=== PATIENT | female | born 1940 | race Caucasian/White ===

== ENCOUNTER 2017-04-18 15:35 | Emergency (ER) | payer OTHER, BC ==
[2017-04-18 15:39] VITALS: BP 125/66; PULSE 76; TEMP 98.1; BMI 19.2
--- NOTE | 2017-04-18 16:07 | PDOC ---
History of Present Illness - General History Source: Family, Spouse Exam Limitations: Dementia - History of Present Illness Initial Comments: 04/18/17 16:34 76 y.o female with significant past medical history of hypothyroidism and dementia, who presents to the emergency room complaining of right wrist pain and swelling s/p unwitnessed fall in the bathroom at home 2 nights ago. The patients reports that she must have missed the toilet and fell hitting her right wrist onto the bathtub or floor. He states that she was on the floor for approximately 2 minutes before he went to check on her and found her lying on the floor. Denies head trauma or LOC. The patient is acting normally as per patients daughter and . Denies headache, lightheadedness. Denies chest pain, SOB. Denies fever, chills. Denies any other injuries. Allergies: NKA <Manda Lopez - Last Filed: 04/18/17 16:39> <Calos Williamson - Last Filed: 04/18/17 17:37> - General Chief Complaint: Injury Stated Complaint: LEFT WRIST INJURY Time Seen by Provider: 04/18/17 15:55 Past History <Manda Lopez - Last Filed: 04/18/17 16:39> - Suicide/Smoking/Psychosocial Hx Smoking History: Former smoker Have you smoked in the past 12 months: No Information on smoking cessation initiated: No Hx Alcohol Use: No Drug/Substance Use Hx: No <Calos Williamson - Last Filed: 04/18/17 17:37> - Past Medical History Allergies/Adverse Reactions: Allergies Allergy/AdvReac Type Severity Reaction Status Date / Time No Known Allergies Allergy Verified 04/18/17 15:36 Home Medications: Ambulatory Orders Donepezil HCl 10 mg PO DAILY 04/18/17 Levothyroxine Sodium [Synthroid] 137 mcg PO DAILY 04/18/17 Memantine HCl [Namenda -] 10 mg PO DAILY 04/18/17 Review of Systems - Review of Systems Able to Perform ROS?: Yes Comments:: 04/18/17 16:34 A complete review of 10 out of 10 review of systems is taken and is negative apart from what is previously mentioned below and in the HPI. <Manda Lopez - Last Filed: 04/18/17 16:39> *Physical Exam - Vital Signs Last Vital Signs Temp Pulse Resp BP Pulse Ox 98.1 F 76 18 125/66 96 04/18/17 15:35 04/18/17 15:35 04/18/17 15:35 04/18/17 15:35 04/18/17 15:35 - Physical Exam Comments: 04/18/17 16:34 Vitals: Triage Vital signs reviewed General Appearance: no acute distress, well nourished well developed Head: Atraumatic Eyes: Pupils equal reactive round, extraocular movement intact Cardiac: Regular rate and rhythym, no murmurs, no rubs, no gallops Lungs: Clear to auscultation bilateral, good air movement bilaterally Right upper extremity: There is swelling and tenderness over the distal radius. Neurovascularly intact distally. Skin: Warm and dry, no rashes or lesions, no rash, no petechiae Neuro: Cranial Nerves 2-12 intact. Gait normal <Manda Lopez - Last Filed: 04/18/17 16:39> - Vital Signs Last Vital Signs Temp Pulse Resp BP Pulse Ox 98.1 F 76 18 125/66 96 04/18/17 15:35 04/18/17 15:35 04/18/17 15:35 04/18/17 15:35 04/18/17 15:35 <Calos Williamson - Last Filed: 04/18/17 17:37> Medical Decision Making - Medical Decision Making 04/18/17 17:36 History and examination consistent with mechanical fall. Discussed with family obtaining a CT of had blood work chest x-ray and urinalysis but family states that since fall occurred 2 nights ago and patient has been at her baseline mental status well-appearing normal only complaining of wrist pain at this time to feel she needs more of a workup then a wrist film Reevaluation wrist x-ray positive for Colles fracture. No significant displacement no indication for auction and ED. Splint placed. Patient provided with orthopedic follow-up Findings, the need for follow-up and strict return instructions discussed with patient and family. <Calos Williamson - Last Filed: 04/18/17 17:37> *DC/Admit/Observation/Transfer - Discharge Dispostion Admit: No - Attestations Scribe Attestion: 04/18/17 16:36 Documentation prepared by SANDRA Thomason, acting as medical record administrator for Calos Williamson MD. <Manda Lopez - Last Filed: 04/18/17 16:39> - Discharge Dispostion Admit: No <Calos Williamson - Last Filed: 04/18/17 17:37> Diagnosis at time of Disposition: Colles' fracture Qualifiers: Encounter type: initial encounter Fracture type: closed Laterality: right Qualified Code(s): S52.531A - Colles' fracture of right radius, initial encounter for closed fracture - Discharge Dispostion Disposition: HOME Condition at time of disposition: Stable - Referrals Referrals: Ron Aguiar MD [Staff Physician] - - Patient Instructions Printed Discharge Instructions: DI for Wrist Fracture, Colles' Fracture Additional Instructions: Ice 20 minutes on and 20 minutes off. Keep elevated as much as possible. Take 2 tabs of Aleve twice a day for 3 days. Avoid activities which exacerbate the pain. Follow up with orthopedist provided this week, Return to Emergency department for any severe or worsening symptoms or any concerns,
== END 2017-04-18 17:00 | disposition home or self-care (01) ==
LOC: FER 15:35
DX: S52.531A Colles' fracture of right radius, initial encounter for closed fracture (principal); W18.39XA Other fall on same level, initial encounter; Y93.89 Activity, other specified; Y92.002 Bathroom of unspecified non-institutional (private) residence as the place of occurrence of the external cause; E03.9 Hypothyroidism, unspecified; F03.90 Unspecified dementia, unspecified severity, without behavioral disturbance, psychotic disturbance, mood disturbance, and anxiety; Z87.891 Personal history of nicotine dependence
CPT/HCPCS: 73110-TC-RT; 73130-TC-RT; 99283-25

== ENCOUNTER 2017-06-27 09:17 | Emergency (ER) | payer OTHER, BC ==
[2017-06-27 09:28] VITALS: BP 125/70; PULSE 82; TEMP 98.1; BMI 20.5
[2017-06-27] MEDS ORDERED: IBUPROFEN 600 MG TABLET (FP) PO ONE ×2 (09:35→09:37)
--- NOTE | 2017-06-27 09:37 | PDOC ---
History of Present Illness - General Chief Complaint: Pain, Acute Stated Complaint: left arm pain Time Seen by Provider: 06/27/17 09:24 Past History - Past Medical History Allergies/Adverse Reactions: Allergies Allergy/AdvReac Type Severity Reaction Status Date / Time No Known Allergies Allergy Verified 04/18/17 15:36 Home Medications: Ambulatory Orders Levothyroxine Sodium [Synthroid] 137 mcg PO DAILY 04/18/17 COPD: No Dementia: Yes (ALZHEIMER'S) Thyroid Disease: Yes - Suicide/Smoking/Psychosocial Hx Smoking History: Never smoked Have you smoked in the past 12 months: No Information on smoking cessation initiated: No Hx Alcohol Use: No Drug/Substance Use Hx: No Substance Use Type: None *Physical Exam - Vital Signs Last Vital Signs Temp Pulse Resp BP Pulse Ox 98.1 F 82 18 125/70 96 06/27/17 09:18 06/27/17 09:18 06/27/17 09:18 06/27/17 09:18 06/27/17 09:18 *DC/Admit/Observation/Transfer Diagnosis at time of Disposition: Colles' fracture Qualifiers: Encounter type: initial encounter Fracture type: closed Laterality: left Qualified Code(s): S52.532A - Colles' fracture of left radius, initial encounter for closed fracture - Discharge Dispostion Disposition: HOME Condition at time of disposition: Stable Admit: No - Referrals Referrals: Mikel Brown MD [Staff Physician] - - Patient Instructions Printed Discharge Instructions: Colles' Fracture - Post Discharge Activity
== END 2017-06-27 11:16 | disposition home or self-care (01) ==
LOC: FER 09:17
DX: S52.532A Colles' fracture of left radius, initial encounter for closed fracture (principal); X58.XXXA Exposure to other specified factors, initial encounter; Y93.89 Activity, other specified; Y92.9 Unspecified place or not applicable; G30.9 Alzheimer's disease, unspecified; F02.80 Dementia in other diseases classified elsewhere, unspecified severity, without behavioral disturbance, psychotic disturbance, mood disturbance, and anxiety; E07.9 Disorder of thyroid, unspecified
CPT/HCPCS: 73110-TC-LR-FY; 99281-25

== ENCOUNTER 2018-08-30 12:44 | Emergency (ER) | payer OTHER, BC ==
--- NOTE | 2018-08-30 12:47 | PDOC ---
History of Present Illness - General Chief Complaint: Injury Stated Complaint: FALL Time Seen by Provider: 08/30/18 12:47 History Source: Patient - History of Present Illness Initial Comments: 08/30/18 13:11 HPI obtained from wearing apparel presser, and son-in-law @ bedside. The patient is an 78 year old LEP, Amharic and Frisian speaking female with a PMH of Hypothyroidism and Dementia who presents from [facility] facility following a witnessed fall. and [facility] staff provide history that patient was going to sit in a chair and missed the chair falling on her R side hitting her head. Immediately ambulatory after fall, no LOC. Credit Support Counselor and patient's note patient has a h/o difficulty transferring from a standing to a chair because she is unable to cognitively understand that she needs to shift her weight. As per , wearing apparel presser and son in law at bedside , patient at baseline mental status. ROS limited 2/2 to patient's clinical condition. Past History - Past Medical History Allergies/Adverse Reactions: Allergies Allergy/AdvReac Type Severity Reaction Status Date / Time No Known Allergies Allergy Verified 08/30/18 12:46 Home Medications: Ambulatory Orders Levothyroxine Sodium [Synthroid] 125 mcg PO DAILY 04/18/17 Docusate Sodium [Colace] 100 mg PO HS 08/30/18 Escitalopram Oxalate [Lexapro -] 20 mg PO DAILY 08/30/18 COPD: No Dementia: Yes (ALZHEIMER'S) Thyroid Disease: Yes - Suicide/Smoking/Psychosocial Hx Smoking History: Never smoked Have you smoked in the past 12 months: No Hx Alcohol Use: No Drug/Substance Use Hx: No Substance Use Type: None Review of Systems - Review of Systems Able to Perform ROS?: No (Dementia) *Physical Exam - Physical Exam Comments: 08/30/18 13:44 Awake, alert, pleasantly demented Pelvis stable, moves all 4 extremities No scalp abrasion/hematoma; no hemanotympanum, no periorbital ecchyosis S1, S2 (no M/R/G) Lungs CLTA Abdomen soft, no TTP, (+) bowel sounds Medical Decision Making - Medical Decision Making 08/30/18 13:24 78 year old female s/p witnessed fall w/head trauma and no LOC. VS unremarkable. Alert, verbal, moves all 4 extremities. (-) hemotympanum, (-) perioribital ecchymosis. Will obtain CT head to r/o bleed. Reassess. 08/30/18 13:42 My read of Head CT shows no acute hemmorhage/midline shift. Formal read pending. 08/30/18 13:[address] negative 08/30/18 14:14 Patient reassessed @ bedside Remains awake, alert, pleasantly demented Will discharge home with documented return precautions. I discussed the physical exam findings, ancillary test results and final diagnoses with the patient's wearing apparel presser and patient's . I answered all of their questions. The patient's and wearing apparel presser were satisfied with the care received and wearing apparel presser and felt comfortable with the discharge plan and treatment plan. The patient will be brought back to the Emergency Department with any new, persistent or worsening symptoms. *DC/Admit/Observation/Transfer Diagnosis at time of Disposition: Fall - Discharge Dispostion Disposition: HOME Condition at time of disposition: Good Decision to Admit order: No - Referrals Referrals: Maximino Hernandes [Primary Care Provider] - - Patient Instructions Printed Discharge Instructions: DI for Concussion, How to Prevent Falls Additional Instructions: Naveed was evaluated today for a fall. A cat scan of her head was negative for any bleeding and at this time she is safe for discharge home. Please monitor Don closely for any signs of more confusion than normal, vomiting. Return immediately to the Emergency Department for any new/worsening/ concerning symptoms. - Post Discharge Activity
[2018-08-30 12:55] VITALS: BP 135/79; PULSE 69; TEMP 98.2; BMI 14.2
--- NOTE | 2018-08-30 13:55 | PDOC ---
Attending Attestation - Resident Resident Name: Agueda Luong - ED Attending Attestation I have performed the following: I have examined & evaluated the patient, The case was reviewed & discussed with the resident, I agree w/resident's findings & plan, Exceptions are as noted - HPI HPI: 08/30/18 13:54 Reviewed Residents HPI - Physicial Exam PE: 08/30/18 13:54 Reviewed Residents PE - Medical Decision Making 08/30/18 13:54 Mechanical slip and fall with minor head injury no loss of consciousness no red flags on headache history given dimension H a CAT scan was ordered which demonstrates no acute pathology patient is well-appearing at her baseline mental status with and side trimmer at Patient stable for discharge back to longterm Finding, need for follow-up and strict return instructions discussed with family.
== END 2018-08-30 14:05 ==
LOC: FER 12:44
DX: S09.90XA Unspecified injury of head, initial encounter (principal); E03.9 Hypothyroidism, unspecified; G30.9 Alzheimer's disease, unspecified; F02.80 Dementia in other diseases classified elsewhere, unspecified severity, without behavioral disturbance, psychotic disturbance, mood disturbance, and anxiety; W18.39XA Other fall on same level, initial encounter; Y93.89 Activity, other specified; Y92.129 Unspecified place in nursing home as the place of occurrence of the external cause
CPT/HCPCS: 70450-TC; 99282-25

== ENCOUNTER 2019-03-18 19:22 | Inpatient (IN) | payer OTHER, BC ==
[2019-03-18 19:48] VITALS: BMI 18.8
[2019-03-18 22:35] LABS: BASO % 0.4 % (0-2.0); EOS % 0.1 % (0-4.5); HEMATOCRIT 43.1 % (32.4-45.2); HEMOGLOBIN 14.3 GM/dl (10.7-15.3); LYMPH % 8.5 % (8-40); MCH 31.8 pg (25.7-33.7); MCHC 33.2 g/dl (32.0-36.0); MEAN CELL VOLUME 95.8 fl (80-96); MEAN PLT VOLUME 8.6 fl (7.5-11.1); MONO % 3.6 % (3.8-10.2); NEUT % 87.4 % (42.8-82.8); PLATELET COUNT 431 K/MM3 (134-434); RDW 13.1 % (11.6-15.6); WHITE BLOOD COUNT 12.8 K/mm3 (4.0-10.8)
[2019-03-18 22:45] LABS: INR 1.06 (0.82-1.09); PROTHROMBIN TIME (PATIENT) 11.9 SEC (10.2-13.0)
[2019-03-18 22:50] LABS: ALBUMIN 3.8 g/dl (3.4-5.0); BILIRUBIN,TOTAL 0.7 mg/dl (0.2-1); CALCIUM 9.6 mg/dl (8.5-10); CREATININE 0.8 mg/dl (0.55-1.3); POTASSIUM 4.2 mmol/L (3.5-5.1); TOT PROT 6.7 g/dl (6.4-8.2)
[2019-03-18 22:56] LABS: EPITHELIAL CELLS FEW /hpf
[2019-03-18] MEDS ORDERED: CEFTRIAXONE 1,000 MG in DEXTROSE 5%-WATER - 50 ML IVPB ONE (23:26)
[2019-03-18] MEDS ORDERED: cefTRIAXone SODIUM 1 GM VIAL ONE (23:53)
--- NOTE | 2019-03-19 01:21 | PDOC ---
Documentation entered by Patti Hutchison SCRIBE, acting as scribe for Any Mclaughlin MD. Any Mclaughlin MD: This documentation has been prepared by the kmeFoster Aiswarya, SCRIBE, under my direction and personally reviewed by me in its entirety. I confirm that the documentation accurately reflects all work, treatment, procedures, and medical decision making performed by me. History of Present Illness - General Chief Complaint: Injury Stated Complaint: FOUND ON FLOOR AT THE [facility] Time Seen by Provider: 03/18/19 19:24 History Source: Patient Exam Limitations: No Limitations - History of Present Illness Initial Comments: 03/18/19 21:24 The patient is a 78 year old female, with a significant PMH of anemia, hypothyroidism, and alzheimer's and dementia, who presents to the emergency department from [facility], for evaluation of a fall that occurred today. Per EMS report, patient was found on the floor secondary to a unwitnessed fall.She currently reports right hip tenderness on palpation and came to the ER for further evaluation. Patients speaks Setswana according to the daughter(at bedside), mostly inappropriate words. No recent acute illness according to daughter; no recent change in medications According to patient's daughter, the patient is currently ambulatory (sometimes requiring assistance) Allergies: NKDA Past surgical history: left hip fracture with pinning about 4 years ago Social history: None reported PCP: Calos Blas Medications as noted below No known allergies Past History - Past Medical History Allergies/Adverse Reactions: Allergies Allergy/AdvReac Type Severity Reaction Status Date / Time No Known Allergies Allergy Verified 03/18/19 19:23 Home Medications: Ambulatory Orders Levothyroxine Sodium [Synthroid] 125 mcg PO DAILY 04/18/17 Docusate Sodium [Colace] 100 mg PO HS 08/30/18 Escitalopram Oxalate [Lexapro -] 20 mg PO DAILY 08/30/18 Anemia: Yes COPD: No Dementia: Yes (ALZHEIMER'S) Thyroid Disease: Yes - Psycho Social/Smoking Cessation Hx Smoking History: Never smoked Have you smoked in the past 12 months: No Information on smoking cessation initiated: No Hx Alcohol Use: No Drug/Substance Use Hx: No Substance Use Type: None Review of Systems - Review of Systems Able to Perform ROS?: No (Severe dementia) *Physical Exam - Vital Signs Last Vital Signs Temp Pulse Resp BP Pulse Ox 66 15 153/105 H 99 03/18/19 19:29 03/18/19 19:29 03/18/19 19:29 03/18/19 19:29 - Physical Exam Comments: 03/18/19 21:24 GENERAL:+speaking Setswana according to daughter. Awake and speaking. Disoriented HEAD: +No obvious head or facial fracture. Non tender. EYES: PERRLA, EOMI, sclera anicteric, conjunctiva clear NECK: Normal ROM, supple, no lymphadenopathy, JVD, or masses ;no tenderness LUNGS: Breath sounds equal, clear to auscultation bilaterally. No wheezes, and no crackles CHEST WALL: No tenderness or crepitus palpated HEART: Regular rate and rhythm, normal S1 and S2, no murmurs, rubs or gallops ABDOMEN: Soft, nontender, normoactive bowel sounds. No guarding, no rebound. No masses EXTREMITIES: +right lower extremity, patient keeping the right knee voluntary extended and immobile. Tenderness on palpation of the anterior hip area. No knee , left leg, ankle tenderness or deformity. Remainder the extremity exam normal NEUROLOGICAL: +Moving all extremities except right leg.Cranial nerves II through XII grossly intact. SKIN: Warm, Dry, normal turgor, no rashes or lesions noted. Twelve-lead electrocardiogram is performed: Sinus tachycardia 103/min; axis, intervals and waveforms are all normal. No acute ST or T wave abnormality seen. No acute cardiac arrhythmia present Portable chest x-ray performed: Patient is slightly rotated; chronic changes seen bilaterally without infiltrates/effusions or masses ED Treatment Course - LABORATORY CBC & Chemistry Diagram: 03/18/19 22:25 03/18/19 22:25 Medical Decision Making - Medical Decision Making 03/18/19 22:14 As noted above this 78-year-old woman with a history of dementia, hypothyroidism and anemia brought in by ambulance from the [facility] with a history of unwitnessed fall. Patient cannot provide details regarding the fall. No recent acute illness or change in medications. As noted above, only area of tenderness is right hip/pelvis area. Noncontrast head CT/left hip CT performed: No evidence of acute fracture or intracranial pathology on head CT. Right hip/pelvis CT reveals acute fracture of femoral neck 03/18/19 23:30 Laboratory evaluation notable for white blood cell count of 12,800 with neutrophil predominance. Chemistry profile suggests significant prerenal azotemia with BUN of 24 and a creatinine of 0.8. Since patient has diagnosis of hip fracture and urinalysis is needed to rule out UTI, Man catheter inserted. Catheterized urine sent for urinalysis: 2+ LE/2-5 RBCs/ 60-80WBCs/few epi/ moderate bacteria Urine sample sent for culture and sensitivity testing. Patient has no known allergies: Ceftriaxone 1 g IVPB will be given for UTI 03/19/19 01:18 Case discussed with ALVERTO Amin of [facility] service. Patient will be admitted ( inpatient status) to service with orthopedic surgery consult. Discharge - Discharge Information Problems reviewed: No Clinical Impression/Diagnosis: Hip fracture Qualifiers: Encounter type: initial encounter Fracture type: closed Laterality: right Qualified Code(s): S72.001A - Fracture of unspecified part of neck of right femur, initial encounter for closed fracture UTI (urinary tract infection) Qualifiers: Urinary tract infection type: acute cystitis Hematuria presence: without hematuria Qualified Code(s): N30.00 - Acute cystitis without hematuria Dementia Qualifiers: Dementia type: unspecified type Dementia behavioral disturbance: without behavioral disturbance Qualified Code(s): F03.90 - Unspecified dementia without behavioral disturbance Condition: Guarded - Admission Yes - Follow up/Referral Referrals: Calos Blas MD [Primary Care Provider] - - Patient Discharge Instructions - Post Discharge Activity
[2019-03-19] MEDS ORDERED: ACETAMINOPHEN 1000 MG/100 ML VIAL (NON FORMULARY) IVPB ONE (01:29)
[2019-03-19] MEDS: DEXTROSE 5%-0.45% SALINE 1,000 ML IV SCH (02:09)
--- NOTE | 2019-03-19 06:38 | HP ---
CHIEF COMPLAINT: Right hip pain PCP: Dr. Blas HISTORY OF PRESENT ILLNESS: 78 year-old female, with a PMH significant for hypothyroidism, dementia, and frequent falls, presented to the ED from [facility] for evaluation of a fall. Per EMS report, patient was found on the floor. In the ED she complained of right hip pain. ER course was notable for: (1) WBC 12.8k (2) UA: 60-80 WBCs, 2+ leuks (3) CT RLE: acute right hip fracture Recent Travel: No PAST MEDICAL HISTORY: Hypothyroidism Dementia Frequent falls PAST SURGICAL HISTORY: Left hip fracture repair x 4 years Social History: lives in assisted living facility Smoking: no Alcohol: no Drugs: no Family history: non-contributory Allergies No Known Allergies Allergy (Verified 03/18/19 19:23) HOME MEDICATIONS: Home Medications Medication Instructions Recorded Levothyroxine Sodium [Synthroid] 125 mcg PO DAILY 04/18/17 Docusate Sodium [Colace] 100 mg PO HS 08/30/18 Escitalopram Oxalate [Lexapro -] 20 mg PO DAILY 08/30/18 REVIEW OF SYSTEMS: unable to obtain from patient who has dementia, nonverbal PHYSICAL EXAMINATION Vital Signs - 24 hr 03/18/19 19:29 Pulse Rate 66 Respiratory 15 Rate Blood Pressure 153/105 H O2 Sat by Pulse 99 Oximetry (%) GENERAL/NEURO: Awake. Opens eyes to voice. Does not follow commands. Vocalizes sounds. Thin, frail, cachectic. Temporal wasting, protruding clavicles. Absence of body fat. LUNGS: Anterior breath sounds CTA HEART: Regular rate and rhythm, S1 and S2 ABDOMEN: Soft, nontender, not distended, UPPER EXTREMITIES: 2+ pulses, warm, well-perfused. No cyanosis. No clubbing. No peripheral edema. LOWER EXTREMITIES: 2+ pulses, warm, well-perfused. RLE: rotated inward and shortened Laboratory Results - last 24 hr 03/18/19 03/18/19 03/18/19 22:25 22:25 22:25 WBC 12.8 H RBC 4.50 Hgb 14.3 Hct 43.1 MCV 95.8 MCH 31.8 MCHC 33.2 RDW 13.1 Plt Count 431 MPV 8.6 Absolute Neuts (auto) 11.1 Neutrophils % 87.4 H Lymphocytes % 8.5 Monocytes % 3.6 L Eosinophils % 0.1 Basophils % 0.4 PT with INR 11.9 INR 1.06 Sodium 141 Potassium 4.2 Chloride 106 Carbon Dioxide 25 Anion Gap 10 BUN 24.0 H Creatinine 0.8 Est GFR (CKD-EPI)AfAm 80.70 Est GFR (CKD-EPI)NonAf 69.63 Random Glucose 135 H Calcium 9.6 Total Bilirubin 0.7 AST 22 ALT 21 Alkaline Phosphatase 81 Total Protein 6.7 Albumin 3.8 Urine Color Urine Appearance Urine pH Urine Protein Urine Glucose (UA) Urine Ketones Urine Blood Urine Nitrite Urine Bilirubin Urine Urobilinogen Ur Leukocyte Esterase Urine RBC Urine WBC Ur Transition Epith Cell Urine Bacteria 03/18/19 22:45 WBC RBC Hgb Hct MCV MCH MCHC RDW Plt Count MPV Absolute Neuts (auto) Neutrophils % Lymphocytes % Monocytes % Eosinophils % Basophils % PT with INR INR Sodium Potassium Chloride Carbon Dioxide Anion Gap BUN Creatinine Est GFR (CKD-EPI)AfAm Est GFR (CKD-EPI)NonAf Random Glucose Calcium Total Bilirubin AST ALT Alkaline Phosphatase Total Protein Albumin Urine Color Yellow Urine Appearance Slightly Urine pH 5.0 Urine Protein Negative Urine Glucose (UA) Negative Urine Ketones Negative Urine Blood Trace-intact Urine Nitrite Negative Urine Bilirubin Negative Urine Urobilinogen 0.2 Ur Leukocyte Esterase 2+ Urine RBC 2-5 Urine WBC 60-80 Ur Transition Epith Cell Few Urine Bacteria Moderate ASSESSMENT/PLAN: 78 year-old female, with a PMH significant for hypothyroidism, dementia, and frequent falls, admitted for an acute right hip fracture. Acute right hip fracture --plan is to OR tomorrow --CXR: unremarkable --ECG: sinus tach @ 103bpm --no known previous problems with anesthesia Hypothyroidism --continue levothyroxine Dementia --continue Lexapro FEN Fluids: D51/2@ 42mL/hr Electrolytes: replete as indicated Nutrition: regular diet; NPO after midnight DVT prophylaxis: SCDs left leg, no chemical prophylaxis pending surgery Physical therapy Dispo: continues to require inpatient care. Full code. Visit type - Emergency Visit Emergency Visit: Yes ED Registration Date: 03/19/19 Care time: The patient presented to the Emergency Department on the above date and was hospitalized for further evaluation of their emergent condition. - New Patient This patient is new to me today: Yes Date on this admission: 03/19/19 - Critical Care Critical Care patient: No
[2019-03-19] MEDS: LEVOTHYROXINE NA 125 MCG TABLET (FP) PO SCH (07:20)
[2019-03-19] MEDS ORDERED: CEFTRIAXONE 1 GM in DEXTROSE 5%-WATER - 50 ML IVPB SCH (10:00)
[2019-03-19] MEDS: ESCITALOPRAM OXALATE 20 MG TABLET (FP) PO SCH (10:20)
--- NOTE | 2019-03-19 10:26 | EKG ---
Test Reason : Blood Pressure : / mmHG Vent. Rate : 103 BPM Atrial Rate : 103 BPM P-R Int : 180 ms QRS Dur : 078 ms QT Int : 352 ms P-R-T Axes : 058 043 -42 degrees QTc Int : 461 ms SINUS TACHYCARDIA POSSIBLE INFERIOR INFARCT , AGE UNDETERMINED ABNORMAL ECG NO PREVIOUS ECGS AVAILABLE Confirmed by MD Martinez, Franck ([id number]) on 03/19/2019 10:25:34 AM Referred By: NAN REDMOND Confirmed By:Franck Henriquez MD
[2019-03-19 11:48] LABS: BASO % 0.8 % (0-2.0); EOS % 0.1 % (0-4.5); HEMOGLOBIN 14.8 GM/dl (10.7-15.3); LYMPH % 5.5 % (8-40); MCH 32.2 pg (25.7-33.7); MCHC 33.6 g/dl (32.0-36.0); MEAN CELL VOLUME 95.7 fl (80-96); MEAN PLT VOLUME 8.7 fl (7.5-11.1); MONO % 3.7 % (3.8-10.2); NEUT % 89.9 % (42.8-82.8); PLATELET COUNT 380 K/MM3 (134-434); RBC 4.59 M/mm3 (3.60-5.2); RDW 13.2 % (11.6-15.6); WHITE BLOOD COUNT 12.8 K/mm3 (4.0-10.8)
[2019-03-19 11:53] LABS: CALCIUM 9.2 mg/dl (8.5-10); CREATININE 1.1 mg/dl (0.55-1.3); POTASSIUM 4.5 mmol/L (3.5-5.1)
--- NOTE | 2019-03-19 13:09 | CONSULT ---
Consult - History of Present Illness Chief Complaint: Right hip pain x 1 day History of Present Illness: 78-year-old female complains of right hip pain which started one day ago after a fall. She was brought to the emergency department where she had a CT scan and was found to have a right hip fracture. Orthopedics was consulted. She has a past medical history of dementia, hypothyroidism and anemia.she is a resident of [facility] - History Source History Provided By: Medical Record - Alcohol/Substance Use Hx Alcohol Use: No - Smoking History Smoking history: Never smoked Have you smoked in the past 12 months: No Home Medications - Allergies Allergies/Adverse Reactions: Allergies Allergy/AdvReac Type Severity Reaction Status Date / Time No Known Allergies Allergy Verified 03/18/19 19:23 - Home Medications Home Medications: Ambulatory Orders Levothyroxine Sodium [Synthroid] 125 mcg PO DAILY 04/18/17 Docusate Sodium [Colace] 100 mg PO HS 08/30/18 Escitalopram Oxalate [Lexapro -] 20 mg PO DAILY 08/30/18 Review of Systems - Review of Systems Constitutional: reports: No Symptoms Eyes: reports: No Symptoms HENT: reports: No Symptoms Neck: reports: No Symptoms Cardiovascular: reports: No Symptoms Respiratory: reports: No Symptoms Gastrointestinal: reports: No Symptoms Genitourinary: reports: No Symptoms Breasts: reports: No Symptoms Reported Musculoskeletal: reports: Extremity Pain Integumentary: reports: No Symptoms Neurological: reports: No Symptoms Endocrine: reports: No Symptoms Hematology/Lymphatic: reports: No Symptoms Psychiatric: reports: No Symptoms Physical Exam Vital Signs: Vital Signs Temperature 98.5 F 03/19/19 09:45 Pulse Rate 92 H 03/19/19 09:45 Respiratory Rate 15 03/18/19 19:29 Blood Pressure 133/76 03/19/19 09:45 O2 Sat by Pulse Oximetry (%) 95 03/19/19 09:45 Constitutional: Yes: Well Nourished, No Distress, Calm HENT: Yes: Atraumatic, Normocephalic Extremities: Yes: Other (right lower extremity: The right lower extremity is shortened and slightly externally rotated. There is pain with motion of the hip. Compartments are soft. Tenderness along the hip. No calf tenderness. Neurovascularly intact distally) Labs: CBC, BMP 03/19/19 11:25 03/19/19 11:25 Imaging - Results Cat Scan: Report Reviewed, Image Reviewed (displaced femoral neck fracture) Assessment/Plan #1 right displaced femoral neck fracture I discussed today's findings and treatment options with the patient's daughter. I recommended operative treatment of this fracture. risks, benefits and alternatives were discussed. She would like to proceed. Plan for ORIF tomorrow. -nothing by mouth after midnight -SCDs -Pain control
[2019-03-19] MEDS ORDERED: DOCUSATE SODIUM 100 MG CAPSULE (FP) PO SCH (22:00)
[2019-03-20] MEDS: LEVOTHYROXINE NA 125 MCG TABLET (FP) PO SCH (06:13)
--- NOTE | 2019-03-20 08:07 | PN ---
Physical Exam: SUBJECTIVE: Patient seen and examined OBJECTIVE: Vital Signs Period Temp Pulse Resp BP Sys/Multani Pulse Ox Last 24 Hr 98.0 F-99.1 F 89-93 18-20 109-133/66-85 91-97 GENERAL: The patient is awake, alert, and fully oriented, in no acute distress. HEAD: Normal with no signs of trauma. EYES: PERRL, extraocular movements intact, sclera anicteric, conjunctiva clear. No ptosis. ENT: Ears normal, nares patent, oropharynx clear without exudates, moist mucous membranes. NECK: Trachea midline, full range of motion, supple. LUNGS: Breath sounds equal, clear to auscultation bilaterally, no wheezes, no crackles, no accessory muscle use. HEART: Regular rate and rhythm, S1, S2 without murmur, rub or gallop. ABDOMEN: Soft, nontender, nondistended, normoactive bowel sounds, no guarding, no rebound, no hepatosplenomegaly, no masses. EXTREMITIES: 2+ pulses, warm, well-perfused, no edema. NEUROLOGICAL: Cranial nerves II through XII grossly intact. Normal speech, gait not observed. PSYCH: Normal mood, normal affect. SKIN: Warm, dry, normal turgor, no rashes or lesions noted Laboratory Results - last 24 hr 03/19/19 03/19/19 03/19/19 11:15 11:25 11:25 WBC 12.8 H RBC 4.59 Hgb 14.8 Hct 44.0 MCV 95.7 MCH 32.2 MCHC 33.6 RDW 13.2 Plt Count 380 MPV 8.7 Absolute Neuts (auto) 11.5 Neutrophils % 89.9 H Lymphocytes % 5.5 L Monocytes % 3.7 L Eosinophils % 0.1 Basophils % 0.8 Sodium 138 Potassium 4.5 Chloride 109 H Carbon Dioxide 23 Anion Gap 6 L BUN 26.0 H Creatinine 1.1 Est GFR (CKD-EPI)AfAm 54.91 Est GFR (CKD-EPI)NonAf 47.38 Random Glucose 174 H Calcium 9.2 Blood Type O POSITIVE Antibody Screen Negative 03/19/19 11:25 WBC RBC Hgb Hct MCV MCH MCHC RDW Plt Count MPV Absolute Neuts (auto) Neutrophils % Lymphocytes % Monocytes % Eosinophils % Basophils % Sodium Potassium Chloride Carbon Dioxide Anion Gap BUN Creatinine Est GFR (CKD-EPI)AfAm Est GFR (CKD-EPI)NonAf Random Glucose Calcium Blood Type O POSITIVE Antibody Screen Active Medications Generic Name Dose Route Start Last Admin Trade Name Freq PRN Reason Stop Dose Admin Acetaminophen 650 mg 03/19/19 01:25 Ofirmev Injection - IVPB Q6H PRN PAIN LEVEL 6-10 Docusate Sodium 100 mg 03/19/19 22:00 03/19/19 21:47 Colace - PO 100 mg HS COLLINS Administration Escitalopram Oxalate 20 mg 03/19/19 10:00 03/19/19 10:20 Lexapro - PO 20 mg DAILY COLLINS Administration Dextrose/Sodium Chloride 1,000 mls @ 42 mls/hr 03/19/19 01:30 03/19/19 02:09 D5-1/2ns - IV 42 mls/hr ASDIR COLLINS Administration Ceftriaxone Sodium 50 mls @ 100 mls/hr 03/20/19 10:00 Ceftriaxone 1 Gm-D5w Bag IVPB DAILY COLLINS Protocol Levothyroxine Sodium 125 mcg 03/19/19 07:00 03/20/19 06:13 Synthroid - PO 125 mcg DAILY@0700 COLILNS Administration ASSESSMENT/PLAN:
[2019-03-20] MEDS: CEFTRIAXONE 1 G/50 ML PREMIX 50 ML IVPB SCH (09:55)
[2019-03-20] MEDS: ESCITALOPRAM OXALATE 20 MG TABLET (FP) PO SCH (09:55)
[2019-03-20] MEDS ORDERED: CEFTRIAXONE 1 GM in DEXTROSE 5%-WATER - 50 ML IVPB SCH (10:00)
[2019-03-20] MEDS ORDERED: DEXAMETHASONE SOD PHOSPHATE/PF 10 MG/ML SDV ONE (12:34)
[2019-03-20] MEDS ORDERED: MIDAZOLAM HCL 2 MG/2 ML SINGLE DOSE VIAL ONE (12:34)
[2019-03-20] MEDS ORDERED: PROPOFOL 20 ML ONE ×2 (13:30)
[2019-03-20] MEDS ORDERED: ceFAZolin SODIUM 1 GM VIAL ONE ×3 (14:03→15:34)
[2019-03-20] MEDS ORDERED: TRANEXAMIC ACID 1000 MG/10 ML VIAL ONE ×2 (15:19→15:59)
[2019-03-20] MEDS ORDERED: oxyCODONE HCL 5 MG TABLET PO PRN (17:05)
[2019-03-20] MEDS ORDERED: LACTATED RINGERS SOLUTION 1,000 ML IV SCH (17:15)
--- NOTE | 2019-03-20 17:42 | OP ---
DATE OF OPERATION: 03/20/2019 ATTENDING SURGEON: Ezio Box MD CASHIER MANAGER: ZACK Boothe PREOPERATIVE DIAGNOSIS: Displaced femoral neck fracture, right hip. POSTOPERATIVE DIAGNOSIS: Displaced femoral neck fracture, right hip. PROCEDURE: Right hip hemiarthroplasty, cemented. ANESTHESIA: Spinal. ESTIMATED BLOOD LOSS: 100. IMPLANTS USED: [place] Accolade II cemented femoral stem size 5 with a 48 mm, -4 mm monopolar head. DRAINS: None. COMPLICATIONS: None. DISPOSITION: Stable to recovery room. INDICATIONS: This is an 86-year-old woman who has some dementia who apparently lives in assisted living who ambulates without a walker, according to her daughter, had a fall suffering a displaced fracture of her femoral neck on the right side. She had an intertrochanteric fracture 3 years ago on the left hip and recovered well from that. She has undergone medical evaluations and is cleared for surgery. After thorough discussion of risks and benefits with the patient's daughter regarding risks and benefits including infection, dislocation, leg length discrepancy, loss of functional status, she understood and wishes to proceed with right hip hemiarthroplasty. DETAILS OF PROCEDURE: Patient was identified in the preoperative area. She received 1 g of Ancef IV. She was taken to the operating room, placed on the operating room table. In lateral position, she was given a spinal anesthetic. She was then held in place with the hip positioner with axillary roll in place. The right hip and lower extremity were prepped and draped in standard sterile fashion. Approximately 10-cm curvilinear incision was made from the posterior approach to the right hip, 1 g of tranexamic acid was given during incision and another during closure. Fascia was identified and incised, and the external rotators and the capsule were divided as a unit off the posterior neck of the femur revealing fracture site. The head was removed and debris removed from the joint. The proximal cut was made. The size of the head was measured, and a 48-mm trial fit nicely into the acetabulum. The partial femur was then prepared with a box osteotome followed by a lateralizing reamer and serial broaches up to size 5. A trial reduction was performed, and the hip had good range of motion and stability. A size 5 stem was then cemented into place. The canal was 1st prepared 1st with the canal cement restrictor and then copiously irrigated with pulsatile lavage. The cement was mixed and then the stem was cemented into place with excess cement removed and the stem held in place in the appropriate version until the cement was hardened. A 48-mm -4 monopolar head was placed and the hip reduced. The wound was copiously irrigated with pulsatile lavage. The restored limb length, and it was very stable to 60 degrees of internal rotation with the hip flexed. The wound was copiously irrigated with pulsatile lavage again. The capsule and external rotators were repaired through a drill hole in the greater trochanter. The fascia was closed with No. 1 Vicryl suture. Skin was closed with 2-0 Vicryl and josé. A sterile dressing was applied. The patient was then placed supine and then an abduction pillow was placed. An x-ray was taken in the operating room and viewed prior to leaving the operating room. The patient was in stable condition to the recovery room. All sponge and instrument counts were correct at the end of the case. EZIO BOX M.D. [id number]
[2019-03-20] MEDS ORDERED: ONDANSETRON 4 MG/2 ML VIAL IVPUSH PRN (18:18)
[2019-03-20] MEDS: ASCORBIC ACID 500 MG TABLET (FP) PO SCH (22:04)
[2019-03-20] MEDS: DOCUSATE SODIUM 100 MG CAPSULE (FP) PO SCH (22:04)
[2019-03-20] MEDS: ACETAMINOPHEN 325 MG TABLET (FP) PO PRN (22:04)
[2019-03-20] MEDS: CEFAZOLIN 1 GM/D5W 1 GM/50 ML BAG IVPB SCH (22:05)
[2019-03-21] MEDS: CEFAZOLIN 1 GM/D5W 1 GM/50 ML BAG IVPB SCH (06:39)
[2019-03-21] MEDS: ACETAMINOPHEN 325 MG TABLET (FP) PO PRN (06:40)
[2019-03-21] MEDS: LEVOTHYROXINE NA 125 MCG TABLET (FP) PO SCH (06:40)
[2019-03-21] MEDS: DEXTROSE 5%-0.45% SALINE 1,000 ML IV SCH ×3 (06:42→15:42)
[2019-03-21 08:56] LABS: HEMATOCRIT 36.2 % (32.4-45.2); HEMOGLOBIN 12.4 GM/dl (10.7-15.3); MCH 32.6 pg (25.7-33.7); MCHC 34.2 g/dl (32.0-36.0); MEAN CELL VOLUME 95.5 fl (80-96); MEAN PLT VOLUME 8.8 fl (7.5-11.1); PLATELET COUNT 209 K/MM3 (134-434); RDW 12.9 % (11.6-15.6); WHITE BLOOD COUNT 11.9 K/mm3 (4.0-10.8)
[2019-03-21] MEDS: ASCORBIC ACID 500 MG TABLET (FP) PO SCH ×2 (09:03→21:46)
[2019-03-21] MEDS: DOCUSATE SODIUM 100 MG CAPSULE (FP) PO SCH ×2 (09:03→21:46)
[2019-03-21] MEDS: ESCITALOPRAM OXALATE 20 MG TABLET (FP) PO SCH (09:03)
[2019-03-21] MEDS: CEFTRIAXONE 1 G/50 ML PREMIX 50 ML IVPB SCH (09:03)
[2019-03-21] MEDS: ENOXAPARIN NA (PORCINE) 30 MG/0.3 ML DISP.SYRIN SQ SCH (09:04)
--- NOTE | 2019-03-21 09:14 | PN ---
Physical Exam: SUBJECTIVE: Patient seen and examined at bedside. Daugher present. No signs or symptoms of distress. OBJECTIVE: Vital Signs Period Temp Pulse Resp BP Sys/Multani Pulse Ox Last 24 Hr 98.0 F-98.7 F 88-106 15-22 113-149/72-89 3-99 GENERAL/NEURO: Awake. Opens eyes to voice. Does not follow commands. Vocalizes sounds. Thin, frail, cachectic. Temporal wasting, protruding clavicles. Absence of body fat. LUNGS: Anterior breath sounds CTA HEART: Regular rate and rhythm, S1 and S2 ABDOMEN: Soft, nontender, not distended, UPPER EXTREMITIES: 2+ pulses, warm, well-perfused. No cyanosis. No clubbing. No peripheral edema. LOWER EXTREMITIES: 2+ pulses, warm, well-perfused. RLE: rotated inward and shortened. Surgical site dressing positive for dried small blood tinged area. Dressing inact Laboratory Results - last 24 hr 03/21/19 08:40 WBC 11.9 H RBC 3.80 Hgb 12.4 Hct 36.2 D MCV 95.5 MCH 32.6 MCHC 34.2 RDW 12.9 Plt Count 209 MPV 8.8 Active Medications Generic Name Dose Route Start Last Admin Trade Name Freq PRN Reason Stop Dose Admin Acetaminophen 650 mg 03/19/19 01:25 Ofirmev Injection - IVPB Q6H PRN PAIN LEVEL 6-10 Acetaminophen 650 mg 03/20/19 17:05 03/21/19 06:40 Tylenol - PO 650 mg Q4H PRN Administration FEVER Ascorbic Acid 500 mg 03/20/19 22:00 03/21/19 09:03 Vitamin C - PO 500 mg BID COLLINS Administration Docusate Sodium 100 mg 03/20/19 22:00 03/21/19 09:03 Colace - PO 100 mg BID COLLINS Administration Enoxaparin Sodium 30 mg 03/21/19 10:00 03/21/19 09:04 Lovenox - SQ 30 mg DAILY COLLINS Administration Escitalopram Oxalate 20 mg 03/19/19 10:00 03/21/19 09:03 Lexapro - PO 20 mg DAILY COLLINS Administration Dextrose/Sodium Chloride 1,000 mls @ 42 mls/hr 03/19/19 01:30 03/21/19 06:46 D5-1/2ns - IV 42 mls/hr ASDIR COLLINS Administration Ceftriaxone Sodium 50 mls @ 100 mls/hr 03/20/19 10:00 03/21/19 09:03 Ceftriaxone 1 Gm-D5w Bag IVPB 100 mls/hr DAILY COLLINS Administration Protocol Lactated Ringer's 1,000 mls @ 125 mls/hr 03/20/19 18:30 Lactated Ringers Solution IV ASDIR COLLINS Levothyroxine Sodium 125 mcg 03/19/19 07:00 03/21/19 06:40 Synthroid - PO 125 mcg DAILY@0700 COLLINS Administration Ondansetron HCl 4 mg 03/20/19 18:18 Zofran Injection IVPUSH Q6H PRN NAUSEA AND/OR VOMITING Oxycodone HCl 5 mg 03/20/19 17:05 Roxicodone - PO Q3H PRN PAIN LEVEL 1 - 3 ASSESSMENT/PLAN: 78 year-old female, with a PMH significant for hypothyroidism, dementia, and frequent falls, admitted for an acute right hip fracture, s/p right hip hemiarthroplasty on 03/[address] Ezio Box. Acute right hip fracture -POD #1 -pain management per surgery -bowel regimen -incentive spirometry q15 min PT is able to take a deep breath but unable to use the incentive spirometry. PT not in any distress. -Post-op Ancef x 2 doses. -Man in place will DC in AM Hypothyroidism -continue levothyroxine Dementia -continue Lexapro UTI -continue Ceftriaxone FEN -Fluids: D5 1/2NS @ 75mL/hr -Electrolytes: replete as indicated -Nutrition: regular diet; DVT prophylaxis -SCDs left leg -Lovenox 30mg subQ Daily Physical therapy Dispo: continues to require inpatient care. Full code. Visit type - Emergency Visit Emergency Visit: Yes ED Registration Date: 03/19/19 Care time: The patient presented to the Emergency Department on the above date and was hospitalized for further evaluation of their emergent condition. - New Patient This patient is new to me today: Yes Date on this admission: 03/22/19 - Critical Care Critical Care patient: No - Discharge Referral Referred to [facility] Med P.C.: No
--- NOTE | 2019-03-21 09:49 | CON.CARD ---
Consult Consult Specialty:: Cardiology Referred by:: Francisco Britt NP Reason for Consultation:: Perioperative evaluation - History of Present Illness Chief Complaint: fall at [facility] w/ r hip fracture History of Present Illness: 78F w/ Alzheimer's Dementia s/p fall w/ right hip fracture now POD 1 s/p right hip hemiarthroplasty/cementing. Baseline dementia, Pakistani speaking with non-sensical verbalizations at baseline. Seen and examined post op. No acute distress Cannot provide history. Had hip surgery yesterday, tolerated well hemodynamically. Appears dry on physical exam. - History Source History Provided By: Medical Record Limitations to Obtaining History: Dementia - Past Medical History TECHNICAL SOLUTIONS DIRECTOR: Yes: Alzheimer's Cardio/Vascular: No: AFIB, Aneurysm, Aortic Insufficiency, Aortic Stenosis, CAD , CHF, Deep Vein Thrombosis, HTN, Hyperlipdemia, [place], Mitral Insufficiency, Mitral Stenosis, Murmur, Pulmonary Hypertension, Other Pulmonary: No: Asthma, Bronchitis, Cancer, COPD, O2 Dependent, Pneumonia, Previously Intubated, Pulmonary Embolus, Pulmonary Fibrosis, Sleep Apnea, Other Gastrointestinal: No: Ascites, Cancer, Constipation, Crohn's Disease, Diverticulitis, Diverticulosis, Esophageal Varices, Gastritis, GERD, GI Bleed, Hemorrhoids, Hiatal Hernia, Inflamatory Bowel Disease, Irritable Bowel Disease, Pancreatitis, Peptic Ulcer Disease, Ulcerative Colitis, Other Renal/: No: Renal Failure, Renal Inusuff, BPH, Cancer, Hematuria, Hemodialysis , Neurogenic Bladder, Renal Calculi, UTI, Other Reproductive: No: Ectopic , Endometriosis, Fibroids, PID, Polycystic Ovary Syndrome, Postmenopausal, Other Heme/Onc: No: Anemia, B12 Deficiency, Bleeding Disorder, Cancer, Current Chemotherapy, Current Radiation Therapy, Hemochromatosis, Hypercoaguable State, Myeloproliferative Synd, Sickle Cell Disease, Sickle Cell Trait, Thrombocytopenia, Other Psych: No: Addictions, Anxiety, Bipolar, Depression, Panic, Psychosis, Schizophrenia, Other Endocrine: Yes: Hypothyroidism - Alcohol/Substance Use Hx Alcohol Use: No - Smoking History Smoking history: Never smoked Have you smoked in the past 12 months: No - Social History Usual Living Arrangement: Other ([facility]) History of Recent Travel: No Home Medications - Allergies Allergies/Adverse Reactions: Allergies Allergy/AdvReac Type Severity Reaction Status Date / Time No Known Allergies Allergy Verified 03/18/19 19:23 - Home Medications Home Medications: Ambulatory Orders Levothyroxine Sodium [Synthroid] 125 mcg PO DAILY 04/18/17 Docusate Sodium [Colace] 100 mg PO HS 08/30/18 Escitalopram Oxalate [Lexapro -] 20 mg PO DAILY 08/30/18 Family Medical History Family History: Unremarkable (not pertinent to this presentation) Review of Systems Unable to obtain ROS, reason: Dementia - Review of Systems Constitutional: reports: No Symptoms Eyes: reports: No Symptoms HENT: reports: No Symptoms Neck: reports: No Symptoms Cardiovascular: reports: No Symptoms Respiratory: reports: No Symptoms Gastrointestinal: reports: No Symptoms Genitourinary: reports: No Symptoms Breasts: reports: No Symptoms Reported Musculoskeletal: reports: No Symptoms Integumentary: reports: No Symptoms Neurological: reports: No Symptoms Endocrine: reports: No Symptoms Hematology/Lymphatic: reports: No Symptoms Psychiatric: reports: No Symptoms - Risk Factors Known Risk Factors: Yes: Age Vital Signs: Vital Signs Temperature 98.3 F 03/21/19 06:00 Pulse Rate 88 03/21/19 06:00 Respiratory Rate 20 03/21/19 08:58 Blood Pressure 121/75 03/21/19 06:00 O2 Sat by Pulse Oximetry (%) 92 L 03/21/19 06:00 Constitutional: Yes: No Distress, Calm Eyes: Yes: Conjunctiva Clear Respiratory: Yes: CTA Bilaterally (scattered mild rhonchi) Gastrointestinal: Yes: Soft Cardiovascular: Yes: Regular Rate and Rhythm JVD: No Carotid Bruit: No Heart Sounds: Yes: S1, S2 (RRR, no M/R/G) Edema: No Neurological: Yes: Confusion - Other Data Labs, Other Data: CBC, BMP 03/21/19 08:40 03/19/19 11:25 INR, PTT INR 1.06 (0.82-1.09) 03/18/19 22:25 Laboratory Tests 03/19/19 03/21/19 11:25 08:40 WBC 11.9 H Hgb 12.4 Plt Count 209 Sodium 138 Potassium 4.5 Creatinine 1.1 Calcium 9.2 Imaging - Results Chest X-ray: Report Reviewed EKG: Image Reviewed (ST, cannot r/o IWMI, age indeterminate. NSST changes.) Assessment/Plan IMP: Chronic dementia Fall resulting in right hip fx now POD #1 s/p right hip hemiarthroplasty/ cementing UTI Hypothyroidism REC: 1. Post op DVT prophylaxis and mobilization protocol as per ortho 2. Rx of UTI as per PMD. 3. Seems to have tolerated surgery well hemodynamically. Appears dry, but O2 sats noted to have drifted slightly down which may be due to post op atelectasis. Will check CXR. 4. ECG. Thanks and please call if any questions or clinical changes.
[2019-03-21 11:18] LABS: ALBUMIN 2.9 g/dl (3.4-5.0); BILIRUBIN,TOTAL 0.5 mg/dl (0.2-1); CALCIUM 8.5 mg/dl (8.5-10); CREATININE 0.8 mg/dl (0.55-1.3); POTASSIUM 3.6 mmol/L (3.5-5.1); TOT PROT 5.6 g/dl (6.4-8.2)
--- NOTE | 2019-03-21 11:24 | EKG ---
Test Reason : Blood Pressure : / mmHG Vent. Rate : 088 BPM Atrial Rate : 088 BPM P-R Int : 148 ms QRS Dur : 078 ms QT Int : 368 ms P-R-T Axes : 063 023 036 degrees QTc Int : 445 ms NORMAL SINUS RHYTHM CANNOT RULE OUT INFERIOR INFARCT , AGE UNDETERMINED NONSPECIFIC ST ABNORMALITY NO SIGNIFICANT CHANGE WAS FOUND Confirmed by CHINO EUCEDA MD ([id number]) on 03/21/2019 11:23:59 AM Referred By: JOSE ROBERTO BROWN Confirmed By:CHINO EUCEDA MD
--- NOTE | 2019-03-21 12:10 | PN ---
Progress Note (short form) - Note Progress Note: POD 1 R hip hemiarthroplasty Pt resting comfortably in her chair. Dressing CDI WBAT, abduction pillow in place at all times when not ambulating. Will require rehab placement. Vital Signs - 24 hr 03/20/19 03/20/19 03/20/19 17:15 17:20 17:25 Temperature 98.7 F 98.7 F 98.0 F Pulse Rate 92 H 92 H 93 H Respiratory 21 H 22 H 22 H Rate Blood Pressure 149/89 120/76 140/85 O2 Sat by Pulse 99 94 L 99 Oximetry (%) 03/20/19 03/20/19 03/20/19 17:30 17:45 18:00 Temperature 98.0 F 98.0 F 98.7 F Pulse Rate 105 H 95 H 94 H Respiratory 21 H 21 H 15 Rate Blood Pressure 133/87 141/86 127/82 O2 Sat by Pulse 94 L 94 L 94 L Oximetry (%) 03/20/19 03/20/19 03/20/19 18:30 18:55 19:51 Temperature 98.0 F 98.0 F Pulse Rate 94 H 105 H Respiratory 18 21 H 21 H Rate Blood Pressure 113/86 133/87 O2 Sat by Pulse 3 L 94 L 94 L Oximetry (%) 03/20/19 03/21/19 03/21/19 22:00 00:44 06:00 Temperature 98.2 F 98.4 F 98.3 F Pulse Rate 96 H 94 H 88 Respiratory 20 20 20 Rate Blood Pressure 120/76 126/72 121/75 O2 Sat by Pulse 92 L Oximetry (%) 03/21/19 03/21/19 08:58 10:00 Temperature 98.2 F Pulse Rate 90 Respiratory 20 19 Rate Blood Pressure 111/69 O2 Sat by Pulse 96 Oximetry (%) Laboratory Results - last 24 hr 03/21/19 03/21/19 08:40 10:25 WBC 11.9 H RBC 3.80 Hgb 12.4 Hct 36.2 D MCV 95.5 MCH 32.6 MCHC 34.2 RDW 12.9 Plt Count 209 MPV 8.8 Sodium 142 Potassium 3.6 Chloride 111 H Carbon Dioxide 21 Anion Gap 10 BUN 26.0 H Creatinine 0.8 Est GFR (CKD-EPI)AfAm 80.70 Est GFR (CKD-EPI)NonAf 69.63 Random Glucose 209 H Calcium 8.5 Total Bilirubin 0.5 AST 35 ALT 17 Alkaline Phosphatase 61 D Total Protein 5.6 L Albumin 2.9 L
[2019-03-21] MEDS: ACETAMINOPHEN 1000 MG/100 ML VIAL (NON FORMULARY) IVPB PRN ×2 (13:35→21:45)
[2019-03-22] MEDS: LEVOTHYROXINE NA 125 MCG TABLET (FP) PO SCH (06:16)
[2019-03-22 08:06] LABS: BASO % 0.2 % (0-2.0); EOS % 0.6 % (0-4.5); HEMATOCRIT 33.6 % (32.4-45.2); HEMOGLOBIN 11.3 GM/dl (10.7-15.3); LYMPH % 11.9 % (8-40); MCH 32.6 pg (25.7-33.7); MCHC 33.5 g/dl (32.0-36.0); MEAN CELL VOLUME 97.2 fl (80-96); MEAN PLT VOLUME 9.4 fl (7.5-11.1); MONO % 8.2 % (3.8-10.2); NEUT % 79.1 % (42.8-82.8); PLATELET COUNT 188 K/MM3 (134-434); RBC 3.46 M/mm3 (3.60-5.2); RDW 13.3 % (11.6-15.6); WHITE BLOOD COUNT 9.6 K/mm3 (4.0-10.8)
[2019-03-22 08:19] LABS: ALBUMIN 2.5 g/dl (3.4-5.0); BILIRUBIN,TOTAL 0.7 mg/dl (0.2-1); CALCIUM 8.3 mg/dl (8.5-10); CREATININE 0.5 mg/dl (0.55-1.3); POTASSIUM 3.5 mmol/L (3.5-5.1); TOT PROT 5.1 g/dl (6.4-8.2)
[2019-03-22] MEDS: ENOXAPARIN NA (PORCINE) 30 MG/0.3 ML DISP.SYRIN SQ SCH (10:01)
[2019-03-22] MEDS: ASCORBIC ACID 500 MG TABLET (FP) PO SCH ×3 (10:02→21:42)
[2019-03-22] MEDS: DOCUSATE SODIUM 100 MG CAPSULE (FP) PO SCH ×3 (10:02→21:42)
[2019-03-22] MEDS: CEFTRIAXONE 1 G/50 ML PREMIX 50 ML IVPB SCH (10:02)
[2019-03-22] MEDS: ESCITALOPRAM OXALATE 20 MG TABLET (FP) PO SCH (10:02)
--- NOTE | 2019-03-22 10:10 | PN ---
Physical Exam: SUBJECTIVE: Patient seen and examined at bedside OBJECTIVE: Vital Signs Period Temp Pulse Resp BP Sys/Multani Pulse Ox Last 24 Hr 97.8 F-98.5 F 75-85 17-20 94-122/56-89 94-98 GENERAL/NEURO: Awake. Opens eyes to voice. Does not follow commands. Vocalizes sounds. Thin, frail, cachectic. Temporal wasting, protruding clavicles. Absence of body fat. LUNGS: Anterior breath sounds CTA HEART: Regular rate and rhythm, S1 and S2 ABDOMEN: Soft, nontender, not distended, UPPER EXTREMITIES: 2+ pulses, warm, well-perfused. No cyanosis. No clubbing. No peripheral edema. LOWER EXTREMITIES: 2+ pulses, warm, well-perfused. RLE: rotated inward and shortened. Surgical site dressing- dried small blood tinged area has not spread from yesterday. Dressing dry and inact. Laboratory Results - last 24 hr 03/21/19 03/22/19 03/22/19 10:25 07:19 07:19 WBC 9.6 RBC 3.46 L Hgb 11.3 Hct 33.6 MCV 97.2 H MCH 32.6 MCHC 33.5 RDW 13.3 Plt Count 188 MPV 9.4 Absolute Neuts (auto) 7.6 Neutrophils % 79.1 Lymphocytes % 11.9 Monocytes % 8.2 Eosinophils % 0.6 Basophils % 0.2 Sodium 142 139 Potassium 3.6 3.5 Chloride 111 H 110 H Carbon Dioxide 21 22 Anion Gap 10 7 L BUN 26.0 H 21.0 H Creatinine 0.8 0.5 L Est GFR (CKD-EPI)AfAm 80.70 105.94 Est GFR (CKD-EPI)NonAf 69.63 91.41 Random Glucose 209 H 135 H Calcium 8.5 8.3 L Total Bilirubin 0.5 0.7 AST 35 29 ALT 17 17 Alkaline Phosphatase 61 D 63 Total Protein 5.6 L 5.1 L Albumin 2.9 L 2.5 L Active Medications Generic Name Dose Route Start Last Admin Trade Name Freq PRN Reason Stop Dose Admin Acetaminophen 650 mg 03/19/19 01:25 03/21/19 21:45 Ofirmev Injection - IVPB 650 mg Q6H PRN Administration PAIN LEVEL 6-10 Acetaminophen 650 mg 03/20/19 17:05 03/21/19 06:40 Tylenol - PO 650 mg Q4H PRN Administration FEVER Ascorbic Acid 500 mg 03/20/19 22:00 03/22/19 10:02 Vitamin C - PO 500 mg BID COLLINS Administration Docusate Sodium 100 mg 03/20/19 22:00 03/22/19 10:02 Colace - PO 100 mg BID COLLINS Administration Enoxaparin Sodium 30 mg 03/21/19 10:00 03/22/19 10:01 Lovenox - SQ 30 mg DAILY COLLINS Administration Escitalopram Oxalate 20 mg 03/19/19 10:00 03/22/19 10:02 Lexapro - PO 20 mg DAILY COLLINS Administration Ceftriaxone Sodium 50 mls @ 100 mls/hr 03/20/19 10:00 03/22/19 10:02 Ceftriaxone 1 Gm-D5w Bag IVPB 100 mls/hr DAILY COLLINS Administration Protocol Lactated Ringer's 1,000 mls @ 125 mls/hr 03/20/19 18:30 Lactated Ringers Solution IV ASDIR COLLINS Dextrose/Sodium Chloride 1,000 mls @ 75 mls/hr 03/21/19 14:51 03/21/19 15:42 D5-1/2ns - IV 75 mls/hr ASDIR COLLINS Administration Levothyroxine Sodium 125 mcg 03/19/19 07:00 03/22/19 06:16 Synthroid - PO 125 mcg DAILY@0700 COLLINS Administration Ondansetron HCl 4 mg 03/20/19 18:18 Zofran Injection IVPUSH Q6H PRN NAUSEA AND/OR VOMITING Oxycodone HCl 5 mg 03/20/19 17:05 Roxicodone - PO Q3H PRN PAIN LEVEL 1 - 3 ASSESSMENT/PLAN: 78 year-old female, with a PMH significant for hypothyroidism, dementia, and frequent falls, admitted for an acute right hip fracture, s/p right hip hemiarthroplasty on 03/[address] Ezio Box. Acute right hip fracture -POD #2 -pain management per surgery -bowel regimen -incentive spirometry q15 min PT is able to take a deep breath but unable to use the incentive spirometry. PT not in any distress. -DC'd Man- Urine in bag was yellow, improvement from yesterday's Beth. Hypothyroidism -continue levothyroxine Dementia -continue Lexapro UTI -continue Ceftriaxone Day #3 FEN -Fluids: D5 1/2NS @ 75mL/hr -Electrolytes: replete as indicated -Nutrition: Puree diet DVT prophylaxis -SCDs left leg -Lovenox 30mg subQ Daily Physical therapy Dispo: continues to require inpatient care. Full code. Visit type - Emergency Visit Emergency Visit: Yes ED Registration Date: 03/19/19 Care time: The patient presented to the Emergency Department on the above date and was hospitalized for further evaluation of their emergent condition. - New Patient This patient is new to me today: No - Critical Care Critical Care patient: No - Discharge Referral Referred to [facility] Med P.C[facility] No
--- NOTE | 2019-03-22 15:46 | PN ---
Progress Note (short form) - Note Progress Note: s: does not communicate 2/2 dementia, appears comfortable Current Medications Generic Name Dose Route Start Last Admin Trade Name Freq PRN Reason Stop Dose Admin Acetaminophen 650 mg 03/19/19 01:25 03/21/19 21:45 Ofirmev Injection - IVPB 650 mg Q6H PRN Administration PAIN LEVEL 6-10 Acetaminophen 650 mg 03/20/19 17:05 03/21/19 06:40 Tylenol - PO 650 mg Q4H PRN Administration FEVER Ascorbic Acid 500 mg 03/20/19 22:00 03/22/19 10:02 Vitamin C - PO 500 mg BID COLLINS Administration Docusate Sodium 100 mg 03/20/19 22:00 03/22/19 10:02 Colace - PO 100 mg BID CO[facility]INS Administration Enoxaparin Sodium 30 mg 03/21/19 10:00 03/22/19 10:01 Lovenox - SQ 30 mg DAILY [facility] Administration Escitalopram Oxalate 20 mg 03/19/19 10:00 03/22/19 10:02 Lexapro - PO 20 mg DAILY [facility] Administration Ceftriaxone Sodium 50 mls @ 100 mls/hr 03/20/19 10:00 03/22/19 10:02 Ceftriaxone 1 Gm-D5w Bag IVPB 100 mls/hr DAILY CO[facility] Administration Protocol Lactated Ringer's 1,000 mls @ 125 mls/hr 03/20/19 18:30 Lactated Ringers Solution IV ASDIR COLLINS Dextrose/Sodium Chloride 1,000 mls @ 75 mls/hr 03/21/19 14:51 03/21/19 15:42 D5-1/2ns - IV 75 mls/hr ASDIR COLLINS Administration Levothyroxine Sodium 125 mcg 03/19/19 07:00 03/22/19 06:16 Synthroid - PO 125 mcg DAILY@0700 [facility] Administration Ondansetron HCl 4 mg 03/20/19 18:18 Zofran Injection IVPUSH Q6H PRN NAUSEA AND/OR VOMITING Oxycodone HCl 5 mg 03/20/19 17:05 Roxicodone - PO Q3H PRN PAIN LEVEL 1 - 3 Vital Signs Period Temp Pulse Resp BP Sys/Multani Pulse Ox Last 24 Hr 97.8 F-98.9 F 75-85 17-20 112-136/56-89 94-98 Constitutional: Yes: No Distress, Calm Eyes: Yes: Conjunctiva Clear Respiratory: Yes: CTA Bilaterally, poor eff Gastrointestinal: Yes: Soft Cardiovascular: Yes: Regular Rate and Rhythm JVD: No Carotid Bruit: No Heart Sounds: Yes: S1, S2 (RRR, no M/R/G) Edema: No Neurological: lethargic CBC, BMP 03/22/19 07:19 03/22/19 07:19 - Results Chest X-ray: Report Reviewed EKG: Image Reviewed (ST, cannot r/o IWMI, age indeterminate. NSST changes.) Assessment/Plan IMP: Chronic dementia Fall resulting in right hip fx now POD #1 s/p right hip hemiarthroplasty/ cementing UTI Hypothyroidism REC: 1. Post op DVT prophylaxis and mobilization protocol as per ortho 2. Rx of UTI as per PMD 3. Seems to have tolerated surgery well hemodynamically. CXR and ecg unremarkable.
[2019-03-22] MEDS: DEXTROSE 5%-0.45% SALINE 1,000 ML IV SCH (18:38)
[2019-03-22] MEDS: ACETAMINOPHEN 325 MG TABLET (FP) PO PRN (18:43)
[2019-03-23] MEDS: LEVOTHYROXINE NA 125 MCG TABLET (FP) PO SCH (06:07)
[2019-03-23] MEDS: ACETAMINOPHEN 325 MG TABLET (FP) PO PRN ×2 (06:07→18:51)
[2019-03-23 08:29] LABS: BASO % 0.5 % (0-2.0); EOS % 1.9 % (0-4.5); HEMATOCRIT 30.3 % (32.4-45.2); HEMOGLOBIN 10.1 GM/dl (10.7-15.3); LYMPH % 13.1 % (8-40); MCH 31.9 pg (25.7-33.7); MCHC 33.2 g/dl (32.0-36.0); MEAN CELL VOLUME 96.2 fl (80-96); MEAN PLT VOLUME 9.4 fl (7.5-11.1); MONO % 8.4 % (3.8-10.2); NEUT % 76.1 % (42.8-82.8); PLATELET COUNT 205 K/MM3 (134-434); RBC 3.15 M/mm3 (3.60-5.2)
[2019-03-23 08:45] LABS: ALBUMIN 2.2 g/dl (3.4-5.0); BILIRUBIN,TOTAL 0.4 mg/dl (0.2-1); CALCIUM 7.9 mg/dl (8.5-10); CREATININE 0.5 mg/dl (0.55-1.3); POTASSIUM 3.3 mmol/L (3.5-5.1); TOT PROT 4.5 g/dl (6.4-8.2)
--- NOTE | 2019-03-23 09:24 | PN ---
Physical Exam: SUBJECTIVE: Patient seen and examined in recliner OBJECTIVE: Vital Signs Period Temp Pulse Resp BP Sys/Multani Pulse Ox Last 24 Hr 98.5 F-99.1 F 73-88 18-20 120-153/56-82 93-93 GENERAL/NEURO: Awake. Opens eyes to voice. Does not follow commands. Vocalizes sounds. Thin, frail, cachectic. Temporal wasting, protruding clavicles. Absence of body fat. LUNGS: Anterior breath sounds CTA HEART: Regular rate and rhythm, S1 and S2 ABDOMEN: Soft, nontender, not distended, UPPER EXTREMITIES: 2+ pulses, warm, well-perfused. No cyanosis. No clubbing. No peripheral edema. LOWER EXTREMITIES: 2+ pulses, warm, well-perfused. RLE: rotated inward and shortened. Surgical site dressing- (outlined) dried small blood tinged area has spread about 1.5cm and new outline placed. Dressing inact. Laboratory Results - last 24 hr 03/23/19 03/23/19 03/23/19 07:23 07:23 07:23 WBC 8.0 RBC 3.15 L Hgb 10.1 L Hct 30.3 L MCV 96.2 H MCH 31.9 MCHC 33.2 RDW 13.0 Plt Count 205 MPV 9.4 Absolute Neuts (auto) 6.1 Neutrophils % 76.1 Lymphocytes % 13.1 Monocytes % 8.4 Eosinophils % 1.9 Basophils % 0.5 Sodium 139 Potassium 3.3 L Chloride 109 H Carbon Dioxide 22 Anion Gap 8 BUN 17.0 Creatinine 0.5 L Est GFR (CKD-EPI)AfAm 105.94 Est GFR (CKD-EPI)NonAf 91.41 Random Glucose 139 H Calcium 7.9 L Magnesium 1.8 Total Bilirubin 0.4 AST 36 ALT 28 Alkaline Phosphatase 68 Total Protein 4.5 L Albumin 2.2 L Active Medications Generic Name Dose Route Start Last Admin Trade Name Freq PRN Reason Stop Dose Admin Acetaminophen 650 mg 03/19/19 01:25 03/21/19 21:45 Ofirmev Injection - IVPB 650 mg Q6H PRN Administration PAIN LEVEL 6-10 Acetaminophen 650 mg 03/20/19 17:05 03/23/19 06:07 Tylenol - PO 650 mg Q4H PRN Administration FEVER Ascorbic Acid 500 mg 03/20/19 22:00 03/22/19 21:42 Vitamin C - PO Not Given BID [facility] Docusate Sodium 100 mg 03/20/19 22:00 03/22/19 21:42 Colace - PO Not Given BID [facility] Enoxaparin Sodium 30 mg 03/21/19 10:00 03/22/19 10:01 Lovenox - SQ 30 mg DAILY [facility] Administration Escitalopram Oxalate 20 mg 03/19/19 10:00 03/22/19 10:02 Lexapro - PO 20 mg DAILY [facility] Administration Lactated Ringer's 1,000 mls @ 125 mls/hr 03/20/19 18:30 Lactated Ringers Solution IV ASDIR COLLINS Dextrose/Sodium Chloride 1,000 mls @ 75 mls/hr 03/21/19 14:51 03/22/19 18:38 D5-1/2ns - IV 75 mls/hr ASDIR COLLINS Administration Levothyroxine Sodium 125 mcg 03/19/19 07:00 03/23/19 06:07 Synthroid - PO 125 mcg DAILY@0700 [facility] Administration Ondansetron HCl 4 mg 03/20/19 18:18 Zofran Injection IVPUSH Q6H PRN NAUSEA AND/OR VOMITING Oxycodone HCl 5 mg 03/20/19 17:05 Roxicodone - PO Q3H PRN PAIN LEVEL 1 - 3 ASSESSMENT/PLAN: 78 year-old female, with a PMH significant for hypothyroidism, dementia, and frequent falls, admitted for an acute right hip fracture, s/p right hip hemiarthroplasty on 03/[address] Ezio Box. Acute right hip fracture -POD #3 -pain management per surgery -bowel regimen (last BM 03/22) -incentive spirometry q15 min PT is able to take a deep breath but unable to use the incentive spirometry. PT not in any distress. -No Man, no drains. -Was on 2LNC upon assessment and 92% O2 sat. Increased back to 4LNC. --PT sats dropped to 90% due to mouth breathing. Pt placed in Venti Mask sats=98% -Chest Xray ordered to R/O post op atelectasis due to falling O2 sat. Chest Xray Results= No acute changes since previous CXR on 03/13/19 Hypokalemia -K+ 3.3 -40meq KCL PO x one dose -will recheck K+ and Mg in afternoon --Afternoon recheck= K+3.5, Mg 1.7 will give 40meq PO after second dose of 1gm Mag Sulfate, will recheck labs Hypomagnesium -Mg 1.7 -2gm Mag Sulfate Hypothyroidism -continue levothyroxine Dementia -continue Lexapro UTI -DC'd Ceftriaxone FEN -Fluids: D5 1/2NS @ 75mL/hr -Electrolytes: replete as indicated -Nutrition: Puree diet DVT prophylaxis -SCDs left leg -Lovenox 30mg subQ Daily Physical therapy Dispo -continues to require inpatient care. Full code. Visit type - Emergency Visit Emergency Visit: Yes ED Registration Date: 03/19/19 Care time: The patient presented to the Emergency Department on the above date and was hospitalized for further evaluation of their emergent condition. - New Patient This patient is new to me today: No - Critical Care Critical Care patient: No - Discharge Referral Referred to [facility] Med P.C.: No
[2019-03-23] MEDS: ASCORBIC ACID 500 MG TABLET (FP) PO SCH ×2 (10:02→21:19)
[2019-03-23] MEDS: ENOXAPARIN NA (PORCINE) 30 MG/0.3 ML DISP.SYRIN SQ SCH (10:02)
[2019-03-23] MEDS: ESCITALOPRAM OXALATE 20 MG TABLET (FP) PO SCH (10:02)
[2019-03-23] MEDS: DOCUSATE SODIUM 100 MG CAPSULE (FP) PO SCH ×2 (10:02→21:19)
[2019-03-23] MEDS ORDERED: POTASSIUM CHLORIDE TABS 20 MEQ TABLET.ER (FP) PO ONE ×2 (10:03→18:19)
[2019-03-23 15:50] LABS: MAGNESIUM 1.7 mg/dL (1.8-2.4); POTASSIUM 3.5 mmol/L (3.5-5.1)
--- NOTE | 2019-03-23 16:04 | PN ---
Progress Note (short form) - Note Progress Note: POD#3 No ortho co Resting comfortably. AF. dementia severe wound cdi no calf tend nvi Cont PT wbat, DVT prophylaxis, OOB, Rehab placement, med care
[2019-03-23] MEDS ORDERED: MAGNESIUM SULF 50% (8.12 MEQ/2 ML-1 GM VIAL) IVPB ONE ×2 (16:28→18:29)
[2019-03-23] MEDS: DEXTROSE 5%-0.45% SALINE 1,000 ML IV SCH (18:33)
[2019-03-23] MEDS: LACTATED RINGERS SOLUTION 1,000 ML IV SCH (18:36)
[2019-03-24] MEDS: LEVOTHYROXINE NA 125 MCG TABLET (FP) PO SCH (06:49)
[2019-03-24] MEDS: ACETAMINOPHEN 325 MG TABLET (FP) PO PRN (06:49)
[2019-03-24 09:13] LABS: BASO % 0.6 % (0-2.0); LYMPH % 13.9 % (8-40); MCH 32.3 pg (25.7-33.7); MCHC 33.4 g/dl (32.0-36.0); MEAN CELL VOLUME 96.7 fl (80-96); MEAN PLT VOLUME 9.3 fl (7.5-11.1); MONO % 7.5 % (3.8-10.2); PLATELET COUNT 240 K/MM3 (134-434); RBC 3.41 M/mm3 (3.60-5.2); WHITE BLOOD COUNT 8.3 K/mm3 (4.0-10.8)
[2019-03-24 10:09] LABS: ALBUMIN 2.3 g/dl (3.4-5.0); BILIRUBIN,TOTAL 0.5 mg/dl (0.2-1); CALCIUM 8.2 mg/dl (8.5-10); CREATININE 0.5 mg/dl (0.55-1.3); MAGNESIUM 2.1 mg/dL (1.8-2.4); POTASSIUM 4.1 mmol/L (3.5-5.1); TOT PROT 4.8 g/dl (6.4-8.2)
[2019-03-24] MEDS: ASCORBIC ACID 500 MG TABLET (FP) PO SCH ×2 (10:45→21:28)
[2019-03-24] MEDS: ESCITALOPRAM OXALATE 20 MG TABLET (FP) PO SCH (10:50)
[2019-03-24] MEDS: ENOXAPARIN NA (PORCINE) 30 MG/0.3 ML DISP.SYRIN SQ SCH (10:50)
[2019-03-24] MEDS: ACETAMINOPHEN 1000 MG/100 ML VIAL (NON FORMULARY) IVPB PRN (10:50)
[2019-03-24] MEDS: DOCUSATE SODIUM 100 MG CAPSULE (FP) PO SCH ×2 (10:50→21:28)
--- NOTE | 2019-03-24 11:04 | PN ---
Physical Exam: SUBJECTIVE: Patient seen and examined NAD, OBJECTIVE: Vital Signs Period Temp Pulse Resp BP Sys/Multani Pulse Ox Last 24 Hr 97.6 F-98.7 F 76-86 18-21 137-145/76-86 94-97 GENERAL: The patient is awake, alert, and fully oriented, in no acute distress. HEAD: Normal with no signs of trauma. EYES: PERRL, extraocular movements intact, sclera anicteric, conjunctiva clear. No ptosis. ENT: Ears normal, nares patent, oropharynx clear without exudates, moist mucous membranes. NECK: Trachea midline, full range of motion, supple. LUNGS: Breath sounds equal, clear to auscultation bilaterally, no wheezes, no crackles, no accessory muscle use. HEART: Regular rate and rhythm, S1, S2 without murmur, rub or gallop. ABDOMEN: Soft, nontender, nondistended, normoactive bowel sounds, no guarding, no rebound, no hepatosplenomegaly, no masses. EXTREMITIES: 2+ pulses, warm, well-perfused, no edema. NEUROLOGICAL: Cranial nerves II through XII grossly intact. Normal speech, gait not observed. PSYCH: Normal mood, normal affect. SKIN: Warm, dry, normal turgor, no rashes or lesions noted Laboratory Results - last 24 hr 03/23/19 03/24/19 03/24/19 15:30 03:40 06:30 WBC 8.3 RBC 3.41 L Hgb 11.0 Hct 33.0 MCV 96.7 H MCH 32.3 MCHC 33.4 RDW 13.0 Plt Count 240 MPV 9.3 Absolute Neuts (auto) 6.3 Neutrophils % 76.0 Lymphocytes % 13.9 Monocytes % 7.5 Eosinophils % 2.0 Basophils % 0.6 Sodium Potassium 3.5 Chloride Carbon Dioxide Anion Gap BUN Creatinine Est GFR (CKD-EPI)AfAm Est GFR (CKD-EPI)NonAf Random Glucose Calcium Magnesium 1.7 L Total Bilirubin AST ALT Alkaline Phosphatase Total Protein Albumin Stool Occult Blood Negative 03/24/19 06:30 WBC RBC Hgb Hct MCV MCH MCHC RDW Plt Count MPV Absolute Neuts (auto) Neutrophils % Lymphocytes % Monocytes % Eosinophils % Basophils % Sodium 137 Potassium 4.1 Chloride 108 H Carbon Dioxide 21 Anion Gap 8 BUN 11.0 Creatinine 0.5 L Est GFR (CKD-EPI)AfAm 105.94 Est GFR (CKD-EPI)NonAf 91.41 Random Glucose 99 Calcium 8.2 L Magnesium 2.1 Total Bilirubin 0.5 AST 35 ALT 33 Alkaline Phosphatase 84 D Total Protein 4.8 L Albumin 2.3 L Stool Occult Blood Active Medications Generic Name Dose Route Start Last Admin Trade Name Freq PRN Reason Stop Dose Admin Acetaminophen 650 mg 03/19/19 01:25 03/21/19 21:45 Ofirmev Injection - IVPB 650 mg Q6H PRN Administration PAIN LEVEL 6-10 Acetaminophen 650 mg 03/20/19 17:05 03/24/19 06:49 Tylenol - PO 650 mg Q4H PRN Administration FEVER Ascorbic Acid 500 mg 03/20/19 22:00 03/23/19 21:19 Vitamin C - PO 500 mg BID [facility]INS Administration Docusate Sodium 100 mg 03/20/19 22:00 03/23/19 21:19 Colace - PO 100 mg BID COLLINS Administration Enoxaparin Sodium 30 mg 03/21/19 10:00 03/23/19 10:02 Lovenox - SQ 30 mg DAILY CO[facility]INS Administration Escitalopram Oxalate 20 mg 03/19/19 10:00 03/23/19 10:02 Lexapro - PO 20 mg DAILY CO[facility]INS Administration Lactated Ringer's 1,000 mls @ 125 mls/hr 03/20/19 18:30 03/23/19 18:36 Lactated Ringers Solution IV Not Given ASDIR COLLINS Dextrose/Sodium Chloride 1,000 mls @ 75 mls/hr 03/21/19 14:51 03/23/19 18:33 D5-1/2ns - IV 75 mls/hr ASDIR COLLINS Administration Levothyroxine Sodium 125 mcg 03/19/19 07:00 03/24/19 06:49 Synthroid - PO 125 mcg DAILY@0700 COLLINS Administration Ondansetron HCl 4 mg 03/20/19 18:18 Zofran Injection IVPUSH Q6H PRN NAUSEA AND/OR VOMITING ASSESSMENT/PLAN: 78 year-old female, with a PMH significant for hypothyroidism, dementia, and frequent falls, admitted for an acute right hip fracture, s/p right hip hemiarthroplasty on 03/[address] Ezio Box. Acute right hip fracture s/p right hip hemiarthroplasty/cementing -POD #4 -pain management per surgery -bowel regimen (last BM 03/22) -incentive spirometry q15 min PT is able to take a deep breath but unable to use the incentive spirometry. PT not in any distress. -No Man, no drains. -Was on 2LNC upon assessment and 92% O2 sat. Increased back to 4LNC. --PT sats dropped to 90% due to mouth breathing. Pt placed in Venti Mask sats=98% -Chest Xray ordered to R/O post op atelectasis due to falling O2 sat. Chest Xray Results= No acute changes since previous CXR on 03/13/19 Hypokalemia-corrected -replete prn Hypomagnesium-corrected -replete PRN Hypothyroidism -continue levothyroxine Dementia -continue Lexapro UTI -DC'd Ceftriaxone FEN -Fluids: D5 1/2NS @ 75mL/hr -Electrolytes: replete as indicated -Nutrition: Puree diet DVT prophylaxis -SCDs left leg -Lovenox 30mg subQ Daily Physical therapy Visit type - Emergency Visit Emergency Visit: Yes ED Registration Date: 03/19/19 Care time: The patient presented to the Emergency Department on the above date and was hospitalized for further evaluation of their emergent condition. - New Patient This patient is new to me today: Yes Date on this admission: 03/24/19 - Critical Care Critical Care patient: No
[2019-03-24] MEDS: DEXTROSE 5%-0.45% SALINE 1,000 ML IV SCH (14:35)
[2019-03-25] MEDS: LEVOTHYROXINE NA 125 MCG TABLET (FP) PO SCH (06:14)
[2019-03-25] MEDS: ACETAMINOPHEN 1000 MG/100 ML VIAL (NON FORMULARY) IVPB PRN (06:39)
--- NOTE | 2019-03-25 07:36 | PN ---
Physical Exam: SUBJECTIVE: Patient seen and examined S/P Femoral neck frackture repair 03/20/2019. Confirming placement in rehab. 10 sys ROS done and negative aside from HPI OBJECTIVE: Vital Signs Period Temp Pulse Resp BP Sys/Multani Pulse Ox Last 24 Hr 98.0 F-98.7 F 75-87 18-21 115-184/69-97 93-96 Laboratory Results - last 24 hr 03/24/19 03/24/19 03/24/19 03:40 06:30 06:30 WBC 8.3 RBC 3.41 L Hgb 11.0 Hct 33.0 MCV 96.7 H MCH 32.3 MCHC 33.4 RDW 13.0 Plt Count 240 MPV 9.3 Absolute Neuts (auto) 6.3 Neutrophils % 76.0 Lymphocytes % 13.9 Monocytes % 7.5 Eosinophils % 2.0 Basophils % 0.6 Sodium 137 Potassium 4.1 Chloride 108 H Carbon Dioxide 21 Anion Gap 8 BUN 11.0 Creatinine 0.5 L Est GFR (CKD-EPI)AfAm 105.94 Est GFR (CKD-EPI)NonAf 91.41 Random Glucose 99 Calcium 8.2 L Magnesium 2.1 Total Bilirubin 0.5 AST 35 ALT 33 Alkaline Phosphatase 84 D Total Protein 4.8 L Albumin 2.3 L Stool Occult Blood Negative Active Medications Generic Name Dose Route Start Last Admin Trade Name Ronq PRN Reason Stop Dose Admin Acetaminophen 650 mg 03/20/19 17:05 03/24/19 06:49 Tylenol - PO 650 mg Q4H PRN Administration FEVER Ascorbic Acid 500 mg 03/20/19 22:00 03/24/19 21:28 Vitamin C - PO 500 mg BID COLLINS Administration Docusate Sodium 100 mg 03/20/19 22:00 03/24/19 21:28 Colace - PO 100 mg BID COLLINS Administration Enoxaparin Sodium 30 mg 03/21/19 10:00 03/24/19 10:50 Lovenox - SQ 30 mg DAILY [facility] Administration Escitalopram Oxalate 20 mg 03/19/19 10:00 03/24/19 10:50 Lexapro - PO 20 mg DAILY CO[facility]INS Administration Lactated Ringer's 1,000 mls @ 125 mls/hr 03/20/19 18:30 03/23/19 18:36 Lactated Ringers Solution IV Not Given ASDIR COLLINS Dextrose/Sodium Chloride 1,000 mls @ 75 mls/hr 03/21/19 14:51 03/24/19 14:35 D5-1/2ns - IV 75 mls/hr ASDIR COLLINS Administration Levothyroxine Sodium 125 mcg 03/19/19 07:00 03/25/19 06:14 Synthroid - PO 125 mcg DAILY@0700 COLLINS Administration Ondansetron HCl 4 mg 03/20/19 18:18 Zofran Injection IVPUSH Q6H PRN NAUSEA AND/OR VOMITING ASSESSMENT/PLAN:
[2019-03-25 08:17] LABS: BASO % 0.4 % (0-2.0); EOS % 2.3 % (0-4.5); HEMATOCRIT 33.2 % (32.4-45.2); HEMOGLOBIN 11.3 GM/dl (10.7-15.3); LYMPH % 16.5 % (8-40); MCH 32.4 pg (25.7-33.7); MCHC 34.1 g/dl (32.0-36.0); MEAN CELL VOLUME 95.2 fl (80-96); MEAN PLT VOLUME 8.7 fl (7.5-11.1); MONO % 8.4 % (3.8-10.2); NEUT % 72.4 % (42.8-82.8); PLATELET COUNT 334 K/MM3 (134-434); RBC 3.49 M/mm3 (3.60-5.2); RDW 12.5 % (11.6-15.6); WHITE BLOOD COUNT 8.3 K/mm3 (4.0-10.8)
[2019-03-25 08:23] LABS: ALBUMIN 2.2 g/dl (3.4-5.0); BILIRUBIN,TOTAL 0.7 mg/dl (0.2-1); CREATININE 0.5 mg/dl (0.55-1.3); MAGNESIUM 1.8 mg/dL (1.8-2.4); TOT PROT 4.7 g/dl (6.4-8.2)
[2019-03-25] MEDS ORDERED: PT OWN MED DRAWER 7, Y5N ONE (09:18)
[2019-03-25] MEDS: ESCITALOPRAM OXALATE 20 MG TABLET (FP) PO SCH (09:21)
[2019-03-25] MEDS: ENOXAPARIN NA (PORCINE) 30 MG/0.3 ML DISP.SYRIN SQ SCH (09:21)
[2019-03-25] MEDS: ASCORBIC ACID 500 MG TABLET (FP) PO SCH (09:21)
[2019-03-25] MEDS: DOCUSATE SODIUM 100 MG CAPSULE (FP) PO SCH (09:21)
[2019-03-25 12:39] LABS: EPITHELIAL CELLS RARE /hpf
[2019-03-25 13:56] VITALS: BP 151/69; PULSE 76; TEMP 97.9
--- NOTE | 2019-03-25 13:56 | PN ---
Progress Note (short form) - Note Progress Note: s: does not communicate 2/2 dementia, appears comfortable, no new concerns per daughter Current Medications Acetaminophen (Tylenol -) 650 mg PO Q4H PRN PRN Reason: FEVER Last Admin: 03/24/19 06:49 Dose: 650 mg Ascorbic Acid (Vitamin C -) 500 mg PO BID [facility] Last Admin: 03/25/19 09:21 Dose: 500 mg Docusate Sodium (Colace -) 100 mg PO BID [facility] Last Admin: 03/25/19 09:21 Dose: 100 mg Enoxaparin Sodium (Lovenox -) 30 mg SQ DAILY [facility] Last Admin: 03/25/19 09:21 Dose: 30 mg Escitalopram Oxalate (Lexapro -) 20 mg PO DAILY [facility] Last Admin: 03/25/19 09:21 Dose: 20 mg Lactated Ringer's (Lactated Ringers Solution) 1,000 mls @ 125 mls/hr IV ASDIR [facility] Last Admin: 03/23/19 18:36 Dose: Not Given Dextrose/Sodium Chloride (D5-1/2ns -) 1,000 mls @ 75 mls/hr IV ASDIR [facility] Last Admin: 03/24/19 14:35 Dose: 75 mls/hr Levothyroxine Sodium (Synthroid -) 125 mcg PO DAILY@0700 [facility] Last Admin: 03/25/19 06:14 Dose: 125 mcg Ondansetron HCl (Zofran Injection) 4 mg IVPUSH Q6H PRN PRN Reason: NAUSEA AND/OR VOMITING Vital Signs Period Temp Pulse Resp BP Sys/Multani Pulse Ox Last 24 Hr 97.4 F-98.7 F 70-87 18-21 115-184/69-97 93-96 Constitutional: Yes: No Distress, Calm Eyes: Yes: Conjunctiva Clear Respiratory: Yes: CTA Bilaterally, poor eff Gastrointestinal: Yes: Soft Cardiovascular: Yes: Regular Rate and Rhythm JVD: No Carotid Bruit: No Heart Sounds: Yes: S1, S2 (RRR, no M/R/G) Edema: No Neurological: lethargic - Results Chest X-ray: Report Reviewed EKG: Image Reviewed (ST, cannot r/o IWMI, age indeterminate. NSST changes.) Assessment/Plan IMP: Chronic dementia Fall resulting in right hip fx now s/p right hip hemiarthroplasty/cementing UTI Hypothyroidism REC: 1. Post op DVT prophylaxis and mobilization protocol as per ortho, plans for rehab 2. Rx of UTI as per PMD - completed abx course 3. Tolerated surgery well hemodynamically. CXR and ecg unremarkable, stable for dc from cardiac perspective
--- NOTE | 2019-03-25 14:00 | DS ---
Physical Exam: SUBJECTIVE: Patient seen and examined OBJECTIVE: Vital Signs Period Temp Pulse Resp BP Sys/Multani Pulse Ox Last 24 Hr 97.4 F-98.7 F 70-87 18-21 115-184/69-97 93-98 PHYSICAL EXAM GENERAL: The patient is awake, alert, and fully oriented, in no acute distress. HEAD: Normal with no signs of trauma. EYES: PERRL, extraocular movements intact, sclera anicteric, conjunctiva clear. ENT: Ears normal, nares patent, oropharynx clear without exudates, moist mucous membranes. NECK: Trachea midline, full range of motion, supple. LUNGS: Breath sounds equal, clear to auscultation bilaterally, no wheezes, no crackles, no accessory muscle use. HEART: Regular rate and rhythm, S1, S2 without murmur, rub or gallop. ABDOMEN: Soft, nontender, nondistended, normoactive bowel sounds, no guarding, no rebound, no hepatosplenomegaly, no masses. EXTREMITIES: 2+ pulses, warm, well-perfused, no edema. NEUROLOGICAL: Cranial nerves II through XII grossly intact. Normal speech, gait not observed. PSYCH: Normal mood, normal affect. SKIN: Warm, dry, normal turgor, no rashes or lesions noted. LABS Laboratory Results - last 24 hr 03/25/19 03/25/19 03/25/19 07:05 07:05 07:38 WBC 8.3 RBC 3.49 L Hgb 11.3 Hct 33.2 MCV 95.2 MCH 32.4 MCHC 34.1 RDW 12.5 Plt Count 334 MPV 8.7 Absolute Neuts (auto) 6.0 Neutrophils % 72.4 Lymphocytes % 16.5 Monocytes % 8.4 Eosinophils % 2.3 Basophils % 0.4 Sodium 136 Potassium 4.0 Chloride 102 Carbon Dioxide 23 Anion Gap 11 BUN 11.0 Creatinine 0.5 L Est GFR (CKD-EPI)AfAm 105.94 Est GFR (CKD-EPI)NonAf 91.41 Random Glucose 109 H Calcium 8.0 L Magnesium 1.8 Total Bilirubin 0.7 AST 29 ALT 35 Alkaline Phosphatase 88 Total Protein 4.7 L Albumin 2.2 L Urine Color Yellow Urine Appearance Clear Urine pH 7.0 Urine Protein Negative Urine Glucose (UA) Negative Urine Ketones Negative Urine Blood Trace-intact Urine Nitrite Negative Urine Bilirubin Negative Urine Urobilinogen 0.2 Ur Leukocyte Esterase Negative Urine RBC 0-2 Urine WBC 0-2 Ur Transition Epith Cell Rare Urine Bacteria Rare Urine Yeast Few HOSPITAL COURSE: Date of Admission:03/19/19 Date of Discharge: 03/25/19 Discharge Summary Problems reviewed: No Reason For Visit: RIGHT FEMORAL NECK FRACTURE Current Active Problems Dementia (Acute) Fracture of hip (Acute) UTI (urinary tract infection) (Acute) Condition: Guarded - Instructions Referrals: Calos Blas MD [Primary Care Provider] - - Home Medications Comprehensive Discharge Medication List: Ambulatory Orders Levothyroxine Sodium [Synthroid] 125 mcg PO DAILY 04/18/17 Docusate Sodium [Colace] 100 mg PO HS 08/30/18 Escitalopram Oxalate [Lexapro -] 20 mg PO DAILY 08/30/18 - Discharge Referral Referred to [facility] Med P.C.: No
--- NOTE | 2019-03-25 18:09 | PATH ---
Surgical Pathology Report Patient Name: CUCO PADILLA Med. Rec. #: [id number] /Age/Gender: 1940 (Age: 78) / F Account: [id number] [facility] Taken: 03/20/2019 Received: 03/20/2019 Reported: 03/25/2019 Physicians: Italia Silva MD Specimen(s) Received RIGHT FEMORAL HEAD Clinical History Right femoral neck fracture Final Diagnosis RIGHT FEMORAL HEAD, RESECTION: FEMORAL HEAD WITH FOCAL INTERTRABECULAR ORGANIZING HEMORRHAGE, CONSISTENT WITH CLINICAL HISTORY OF FRACTURE. Electronically Signed Rasheed Allan M.D. Gross Description Received in formalin labeled "right femoral head," is a 4.5 x 4.5 x 3.5 cm portion of femoral head with no femoral neck attached. The margin of resection is red-brown, jagged and hemorrhagic. There are no areas of eburnation present. The articular surface is ayala-brown and focally granular. The underlying trabecular bone is yellow-brown and focally hemorrhagic. A employee representative section is submitted in one cassette, following decalcification. 03/22/2019 [facility]03/22/2019
== END 2019-03-25 14:50 | DRG 469 ==
LOC: FER 19:22 → FM/S 03-19 12:21
PROVIDERS: ADMIT Internal Medicine; ATTEND Nurse Practitioner Family
PROC: 0SRR0J9 Replacement of Right Hip Joint, Femoral Surface with Synthetic Substitute, Cemented, Open Approach (ICD-10-PCS; principal; 2019-03-20 15:42)
DX: S72.001A Fracture of unspecified part of neck of right femur, initial encounter for closed fracture (principal); R53.2 Functional quadriplegia; E43 Unspecified severe protein-calorie malnutrition; Z68.1 Body mass index [BMI] 19.9 or less, adult; D64.9 Anemia, unspecified; E03.9 Hypothyroidism, unspecified; E83.42 Hypomagnesemia; E87.6 Hypokalemia; G30.9 Alzheimer's disease, unspecified; F02.80 Dementia in other diseases classified elsewhere, unspecified severity, without behavioral disturbance, psychotic disturbance, mood disturbance, and anxiety; C39.0 Malignant neoplasm of upper respiratory tract, part unspecified; Z91.81 History of falling; W19.XXXA Unspecified fall, initial encounter; Y93.9 Activity, unspecified; Y92.129 Unspecified place in nursing home as the place of occurrence of the external cause; Y99.9 Unspecified external cause status
CPT/HCPCS: 36415; 70450-TC; 71045-TC-FY; 72192-TC; 73502-TC-RT-FY; 73700-TC-RT; 80048; 80053; 81003; 81015; 82272; 83735; 84132; 85025; 85027; 85610; 86850; 86900; 86901; 87086; 88305-TC; 88311-TC; 93005; 94760; 97116-GP; 97162-GP; 99284-25; J0131